=== PATIENT | male | born 1950 | race Caucasian/White ===

== ENCOUNTER 2022-07-07 22:39 | Emergency (ER) | payer MEDICARE, BC | END 2022-07-08 01:18 | disposition home or self-care (01) | LOC: KA.ED 22:39 | DX: T18.108A Unspecified foreign body in esophagus causing other injury, initial encounter (principal); I11.0 Hypertensive heart disease with heart failure; I50.9 Heart failure, unspecified; Z79.899 Other long term (current) drug therapy; Z88.0 Allergy status to penicillin | CPT/HCPCS: 70490; 99283; 99284 ==